=== PATIENT | female | born 1960 | race Caucasian/White ===

== ENCOUNTER 2020-03-11 14:31 | Emergency (ER) | payer OTHER ==
[~2020-03-11] VITALS: Ht 162.6 cm; Wt 80.7 kg
[2020-03-11] MEDS ORDERED: TOPROL XL25 M1 (14:42)
== END 2020-03-11 20:18 | disposition home or self-care (01) ==
LOC: ER 14:31
DX: K52.89 Other specified noninfective gastroenteritis and colitis (principal); Z03.818 Encounter for observation for suspected exposure to other biological agents ruled out

== ENCOUNTER 2020-03-20 09:09 | Inpatient (IN) | payer OTHER ==
[~2020-03-20] VITALS: Ht 10.2 cm; Wt 5.0 kg
[~2020-03-20 09:09] MED LIST: TOPROL XL25 M1
== END 2020-04-14 17:25 | disposition home or self-care (01) | DRG 387 ==
LOC: ER 09:09 → SURH 12:50
PROVIDERS: ADMIT Internal Medicine; ATTEND Internal Medicine
PROC: BW21ZZZ Computerized Tomography (CT Scan) of Abdomen and Pelvis (ICD-10-PCS; principal; 2020-03-20)
PROC: 30233N1 Transfusion of Nonautologous Red Blood Cells into Peripheral Vein, Percutaneous Approach (ICD-10-PCS; 2020-03-21)
PROC: 0DBM8ZZ Excision of Descending Colon, Via Natural or Artificial Opening Endoscopic (ICD-10-PCS; 2020-03-25)
PROC: 0DBN8ZZ Excision of Sigmoid Colon, Via Natural or Artificial Opening Endoscopic (ICD-10-PCS; 2020-03-25)
PROC: 0DBP8ZZ Excision of Rectum, Via Natural or Artificial Opening Endoscopic (ICD-10-PCS; 2020-03-25)
PROC: 02HV33Z Insertion of Infusion Device into Superior Vena Cava, Percutaneous Approach (ICD-10-PCS; 2020-04-01)
PROC: BW21Y0Z Computerized Tomography (CT Scan) of Abdomen and Pelvis using Other Contrast, Unenhanced and Enhanced (ICD-10-PCS; 2020-04-07)
DX: K51.018 Ulcerative (chronic) pancolitis with other complication (principal); K52.89 Other specified noninfective gastroenteritis and colitis; Z20.828 Contact with and (suspected) exposure to other viral communicable diseases; E86.0 Dehydration; D50.0 Iron deficiency anemia secondary to blood loss (chronic); A04.5 Campylobacter enteritis; F43.21 Adjustment disorder with depressed mood

== ENCOUNTER 2020-07-21 20:02 | Inpatient (IN) | payer OTHER ==
[~2020-07-21] VITALS: Ht 162.6 cm; Wt 68.9 kg
[2020-08-11] MEDS ORDERED: PREDNISONE10 M2 (14:38)
== END 2020-08-11 20:40 | disposition home or self-care (01) | DRG 391 ==
LOC: ER 20:02 → ICU 07-22 15:41 → SURH 07-22 15:41 → ICU 08-01 15:51 → SURH 08-06 20:22
PROVIDERS: ADMIT Internal Medicine; ATTEND Internal Medicine
PROC: BW2110Z Computerized Tomography (CT Scan) of Abdomen and Pelvis using Low Osmolar Contrast, Unenhanced and Enhanced (ICD-10-PCS; 2020-07-21)
PROC: B54DZZZ Ultrasonography of Bilateral Lower Extremity Veins (ICD-10-PCS; 2020-07-21)
PROC: 4A12X4Z Monitoring of Cardiac Electrical Activity, External Approach (ICD-10-PCS; 2020-07-23)
PROC: 30233N1 Transfusion of Nonautologous Red Blood Cells into Peripheral Vein, Percutaneous Approach (ICD-10-PCS; 2020-07-24)
PROC: 3E0F7SF Introduction of Other Gas into Respiratory Tract, Via Natural or Artificial Opening (ICD-10-PCS; 2020-07-24)
PROC: 0DBP8ZX Excision of Rectum, Via Natural or Artificial Opening Endoscopic, Diagnostic (ICD-10-PCS; principal; 2020-07-25)
PROC: 0DBN8ZX Excision of Sigmoid Colon, Via Natural or Artificial Opening Endoscopic, Diagnostic (ICD-10-PCS; 2020-07-25)
PROC: B30 Imaging, Upper Arteries, Plain Radiography (ICD-10-PCS; 2020-07-25)
PROC: B30 Imaging, Upper Arteries, Plain Radiography (ICD-10-PCS; 2020-07-25)
PROC: B24BYZZ Ultrasonography of Heart with Aorta using Other Contrast (ICD-10-PCS; 2020-07-26)
PROC: 02H633Z Insertion of Infusion Device into Right Atrium, Percutaneous Approach (ICD-10-PCS; 2020-07-27)
PROC: BW2110Z Computerized Tomography (CT Scan) of Abdomen and Pelvis using Low Osmolar Contrast, Unenhanced and Enhanced (ICD-10-PCS; 2020-07-31)
PROC: 06H03DZ Insertion of Intraluminal Device into Inferior Vena Cava, Percutaneous Approach (ICD-10-PCS; 2020-08-03)
DX: K52.9 Noninfective gastroenteritis and colitis, unspecified (principal); I26.94 Multiple subsegmental thrombotic pulmonary emboli without acute cor pulmonale; K92.1 Melena; I82.402 Acute embolism and thrombosis of unspecified deep veins of left lower extremity; J98.11 Atelectasis; K51.00 Ulcerative (chronic) pancolitis without complications; D64.9 Anemia, unspecified; A04.5 Campylobacter enteritis; D47.3 Essential (hemorrhagic) thrombocythemia; E87.6 Hypokalemia; E86.0 Dehydration; F43.21 Adjustment disorder with depressed mood; Z20.822 Contact with and (suspected) exposure to COVID-19

== ENCOUNTER 2020-08-18 21:16 | Inpatient (IN) | payer OTHER ==
[~2020-08-18] VITALS: Ht 162.6 cm; Wt 65.8 kg
[~2020-08-18 21:16] MED LIST changes: +PREDNISONE10 M2
--- NOTE | 2020-08-18 21:21 | NUR ---
SE RECIBE PACIENTE ALERTA, ORIENTADA EN TIEMPO , LUGAR Y PERSONA REFIERE VENIR POR SANGRADO RECTAL DESDE EL VIERNES SE ESTIMAN S/V TEMPERATURA 101.[address]RIQUI BLAND. SE UBICA EN AREA DE OBSERVACION.
--- NOTE | 2020-08-19 00:27 | NUR ---
PTE EVALUADA POR LA DRA MARTINEZ QUIEN ORDENA EL [place]. SE ORIENTA SOBRE EL MISMO, LO CUAL REFIERE ENTENDER. SE REALIZAN PRUEBAS DE LABORATORIO Y SE ADMINISTRAN MEDICAMENTOS JC ORDEN MEDICA Y SIGUIENDO MEDIDAS ASEPTICAS.
--- NOTE | 2020-08-19 01:08 | NUR ---
SE NOTIFICAN ABG'S A MR HORVATH Y CT'S A MR [place].
--- NOTE | 2020-08-19 02:15 | NUR ---
SE CANALIZA PTE EN ANTEBRAZO RT CON ANGIO #18 PATENTE Y SMILEY DE EDEMA O ERITEMA PARA REALIZAR CT, PTE TOLERA PROCEDIMIENTO. SE ENTREGA COMPRESA DE HIELO.
--- NOTE | 2020-08-19 02:35 | NUR ---
SE TRANSFIERE PTE A LA UNIDAD DE CHEST PAIN, JC ORDEN MEDICA, ES CONECTADA A MONITOR CARDIACO Y OXIMETRIA DE PULSO. UBICADA EN CAMA #16. SE COLOCA CANULA NASAL A 2L/MIN, JC ORDEN MEDICA. PTE EN COMPANIA DE FAMILIAR. PENDIENTE A KCL 40 MEQ Y ZOSYN 4.5GM EN ESPERA DE DESPACHO DE SUPERVISION. SE ENTREGA PTE A MR Feliz GUEVARA.
--- NOTE | 2020-08-19 07:27 | NUR ---
SE RECIBE PACIENTE DEL TURNO ANTERIOR. PACIENTE ALERTA Y ORIENTADA EN LAS JLUIS ESFERAS. DESCANSANDO EN CAMA POSICION SEMIFOWLER Y BARANDAS ELEVADAS. PACIENTE CON TERAPIA INTRAVENOSA PATENTE Y SMILEY DE EDEMA. PACIENTE SMILEY DE DOLOR AL MOMENTO. SE MANTIENE A PACIENTE BAJO OBSERVACION POR CAMBIOS.
--- NOTE | 2020-08-19 08:54 | NUR ---
PENDIENTECONSULTA DE PACIENTE CON DR. MILIAN Y DR. DALY. AMBAS CONSULTAS NOTIFICADAS.
--- NOTE | 2020-08-19 11:21 | NUR ---
SE ADMINISTRA MEDICAMENTO ACETHAMINOPHEN A PACIENTE. LA MISMA SE ENCUENTRA FEBRIL CON TEMPERATURA DE (102.0 F). SE ORIENTA A PACIENTE SOBRE MEDICACION. SE LE ENTREGA A PACIENTE ICE BAG LISSA MEDIDA ANTIPIRETICA.
--- NOTE | 2020-08-19 13:38 | NUR ---
SE ADMINISTRA MEDICAMENTO ORDENADO POR MEDICO. SE ORIENTA A PACIENTE SOBRE MEDICAMENTO ADMINISTRADO. PACIENTE REFIERE ENTENDER. PACIENTE SE MANTIENE BAJO OBSERVACION. TEMPERARUTA AL MOMENTO DE (100.1 F).
--- NOTE | 2020-08-19 15:11 | NUR ---
SE RECIBE PTE FEMENIA ALERTA Y ORIENTADA X3,ACOMPANADA DE FAMILIAR,SE MANTIENE CONECTADA A MONITOR CARDIACO LEOLA Y OXIMETRIA CONNTINUA,SE REALIZAN S/V Y SE NOTIFICA A JONATHANVICKI,SE REALIZA CAMBIO DE PANAL,NO SE OBSERVA ZENON EN EVACUACION Y SE NOTIFICA A JONATHANVICKI,SE TONEY LIMPIA Y SECAMSE MANTIENE PTE EN OBSERVACION POR CAMBIOS.
== END 2020-08-28 18:20 | disposition home or self-care (01) | DRG 371 ==
LOC: ER 21:16 → SURH 08-19 15:46
PROVIDERS: ADMIT Internal Medicine; ATTEND Internal Medicine
PROC: 30243N1 Transfusion of Nonautologous Red Blood Cells into Central Vein, Percutaneous Approach (ICD-10-PCS; 2020-08-19)
PROC: 4A12X4Z Monitoring of Cardiac Electrical Activity, External Approach (ICD-10-PCS; 2020-08-19)
PROC: 3E0F7SF Introduction of Other Gas into Respiratory Tract, Via Natural or Artificial Opening (ICD-10-PCS; 2020-08-19)
PROC: 02HV33Z Insertion of Infusion Device into Superior Vena Cava, Percutaneous Approach (ICD-10-PCS; principal; 2020-08-20)
DX: A04.72 Enterocolitis due to Clostridium difficile, not specified as recurrent (principal); J18.9 Pneumonia, unspecified organism; K51.011 Ulcerative (chronic) pancolitis with rectal bleeding; I27.82 Chronic pulmonary embolism; D64.9 Anemia, unspecified; R53.81 Other malaise; R00.0 Tachycardia, unspecified; I10 Essential (primary) hypertension; D47.3 Essential (hemorrhagic) thrombocythemia; E86.0 Dehydration; J98.4 Other disorders of lung; F43.21 Adjustment disorder with depressed mood; Z79.01 Long term (current) use of anticoagulants

== ENCOUNTER 2020-09-29 12:01 | Outpatient (CLI) | payer OTHER | END 2020-09-29 12:09 | disposition home or self-care (01) | LOC: RAD 12:01 | PROVIDERS: ATTEND Internal Medicine Pulmonary Disease | DX: J98.11 Atelectasis (principal); I26.99 Other pulmonary embolism without acute cor pulmonale ==

== ENCOUNTER → 2020-12-29 14:37 | Outpatient (CLI) | payer OTHER | END | disposition home or self-care (01) | LOC: RAD 14:37 | PROVIDERS: ATTEND Internal Medicine Pulmonary Disease | DX: I26.99 Other pulmonary embolism without acute cor pulmonale (principal); J98.11 Atelectasis ==

== ENCOUNTER 2020-12-31 08:00 | Outpatient (CLI) | payer OTHER | END 2020-12-31 08:30 | disposition home or self-care (01) | LOC: PPH VACUNA 08:00 | DX: Z23 Encounter for immunization (principal) ==

== ENCOUNTER 2021-02-03 07:45 | Outpatient (CLI) | payer OTHER | END 2021-02-03 08:05 | disposition home or self-care (01) | LOC: TOM 07:45 | PROVIDERS: ATTEND Internal Medicine Pulmonary Disease | DX: R07.89 Other chest pain (principal); I26.99 Other pulmonary embolism without acute cor pulmonale; J98.11 Atelectasis ==

== ENCOUNTER 2021-10-12 08:10 | Outpatient (CLI) | payer OTHER | END 2021-10-12 08:16 | disposition home or self-care (01) | LOC: TOM 08:10 | PROVIDERS: ATTEND Internal Medicine Pulmonary Disease | DX: J98.11 Atelectasis (principal); I26.99 Other pulmonary embolism without acute cor pulmonale ==

== ENCOUNTER 2023-02-22 10:56 | Inpatient (IN) | payer OTHER ==
[~2023-02-22] VITALS: Ht 162.6 cm; Wt 72.1 kg
[2023-02-22 12:18] LABS: HEMATOCRIT 28.9 % (36.0-45.00); HEMOGLOBIN 9.5 g/dL (12.0-15.00); MEAN CELL VOLUME 77.1 fL (80.00-100.00); MEAN CORPUSCULAR HEMOGLOBIN 25.3 pg (27.00-32.0); MEAN CORPUSCULAR HGB CONC 32.8 g/dl (32.0-36.0); PLATELET COUNT 366 K/uL (150-450); RED BLOOD COUNT 3.75 M/uL (4.00-6.00); RED CELL DISTRIBUTION WIDTH 20.4 % (11.5-14.5)
[2023-02-22 12:45] LABS: ALBUMIN 1.3 gm/dL (3.4-5.0); BILIRUBIN TOTAL 0.42 mg/dL (0.3-1.2); CALCIUM 7.2 mg/dL (8.5-10.1); CREATININE SERUM 0.7 mg/dL (0.55-1.02); GFR 85.35; GLOBULINA 3.4 G/DL (2.4-3.5); POTASSIUM 3.1 mEq/L (3.5-5.1); TOTAL PROTEIN 4.7 gm/dL (6.4-8.2)
[2023-02-22 12:51] LABS: C-REACTIVE PROTEIN 3.58 MG/DL (0.00-0.29)
[2023-02-22 20:50] LABS: INR 1.51; PARTIAL THROMBOPLASTIN TIME 28.8 SECONDS (22.0-34.0)
[2023-02-22 20:52] LABS: PROTHROMBIN TIME 15.4 SECONDS (9.0-11.5)
[2023-02-22 21:29] LABS: PH,URINE 6.5 (5.0-8.0); URINE APPEARANCE Cloudy; URINE BILIRRUBIN Negative (NEGATIVE); URINE BLOOD Negative; URINE COLOR Dark Yellow; URINE GLUCOSE Negative (NEGATIVE); URINE LEUKOCYTE Trace; URINE NITRATE Negative; URINE PROTEIN Trace (NEGATIVE)
[2023-02-22 21:30] LABS: URINE EPITHELIAL CELLS 16.8 uL (0.0-38.8); URINE WBC 9.1 uL (0.0-23.2)
[2023-02-22 21:35] LABS: URINE RBC 0.4 uL (0.0-20.8)
[2023-02-23 07:48] LABS: ob POSITIVE (NEGATIVE)
[2023-02-23 21:15] LABS: CALCIUM 6.6 mg/dL (8.5-10.1); CHOL HDL RATIO 5.8 (0-5.0); CREATININE SERUM 0.49 mg/dL (0.55-1.02); GFR 128.82
[2023-02-23 21:25] LABS: POTASSIUM 2.66 mEq/L (3.5-5.1)
[2023-02-25 07:34] LABS: ALBUMIN 1.2 gm/dL (3.4-5.0); BILIRUBIN TOTAL 0.29 mg/dL (0.3-1.2); CALCIUM 7.2 mg/dL (8.5-10.1); CREATININE SERUM 0.44 mg/dL (0.55-1.02); GFR 145.86; GLOBULINA 2.5 G/DL (2.4-3.5); POTASSIUM 3.53 mEq/L (3.5-5.1); TOTAL PROTEIN 3.7 gm/dL (6.4-8.2)
[2023-02-25 07:47] LABS: MEAN CORPUSCULAR HGB CONC 32.8 g/dl (32.0-36.0); PLATELET COUNT 235 K/uL (150-450); RED BLOOD COUNT 2.85 M/uL (4.00-6.00); RED CELL DISTRIBUTION WIDTH 20.6 % (11.5-14.5)
[2023-02-25 08:02] LABS: MEAN CORPUSCULAR HEMOGLOBIN 25.6 pg (27.00-32.0)
[2023-02-25 08:03] LABS: HEMATOCRIT 22.2 % (36.0-45.00)
[2023-02-25 08:11] LABS: HEMOGLOBIN 7.3 g/dL (12.0-15.00)
[2023-02-26 05:06] LABS: hav igm Negative (Negative); hcv Non Reactive (Non Reactive); hep b c Negative (Negative)
[2023-02-26 13:56] LABS: HEMATOCRIT 33.2 % (36.0-45.00); HEMOGLOBIN 10.8 g/dL (12.0-15.00); MEAN CELL VOLUME 80.2 fL (80.00-100.00); MEAN CORPUSCULAR HGB CONC 32.5 g/dl (32.0-36.0); PLATELET COUNT 250 K/uL (150-450); RED BLOOD COUNT 4.13 M/uL (4.00-6.00); RED CELL DISTRIBUTION WIDTH 19.1 % (11.5-14.5)
[2023-02-28 06:24] LABS: INR 1.26; PARTIAL THROMBOPLASTIN TIME 24.7 SECONDS (22.0-34.0)
[2023-02-28 06:56] LABS: HEMATOCRIT 26.5 % (36.0-45.00); HEMOGLOBIN 8.9 g/dL (12.0-15.00); MEAN CELL VOLUME 81.2 fL (80.00-100.00); MEAN CORPUSCULAR HEMOGLOBIN 27.2 pg (27.00-32.0); MEAN CORPUSCULAR HGB CONC 33.6 g/dl (32.0-36.0); PLATELET COUNT 244 K/uL (150-450); RED BLOOD COUNT 3.27 M/uL (4.00-6.00); RED CELL DISTRIBUTION WIDTH 19.5 % (11.5-14.5)
[2023-02-28 07:35] LABS: ALBUMIN 1.3 gm/dL (3.4-5.0); BILIRUBIN TOTAL 0.29 mg/dL (0.3-1.2); BILIRUBIN,CONJUGATED 0.15 mg/dL (0.0-0.2); BILIRUBIN,UNCONJUGATED 0.14 mg/dL (0.0-0.6); CALCIUM 7.4 mg/dL (8.5-10.1); CHOL HDL RATIO 6.6 (0-5.0); CREATININE SERUM 0.42 mg/dL (0.55-1.02); GFR 153.9; GLOBULINA 2.8 G/DL (2.4-3.5); MAGNESIUM 1.6 mg/dL (1.8-2.4); POTASSIUM 3.68 mEq/L (3.5-5.1); TOTAL PROTEIN 4.1 gm/dL (6.4-8.2)
[2023-02-28 09:00] LABS: UREA CLEARANCE 29.3 ML/MIN
== END 2023-02-28 17:38 | disposition home or self-care (01) | DRG 386 ==
LOC: ER 10:56 → MEDJ 20:51 → SURG 20:51
PROVIDERS: Emergency Medicine; General Practice; ADMIT Specialist; ATTEND Specialist
PROC: BW21ZZZ Computerized Tomography (CT Scan) of Abdomen and Pelvis (ICD-10-PCS; 2023-02-22)
PROC: 02HV33Z Insertion of Infusion Device into Superior Vena Cava, Percutaneous Approach (ICD-10-PCS; 2023-02-23)
PROC: 3E0436Z Introduction of Nutritional Substance into Central Vein, Percutaneous Approach (ICD-10-PCS; 2023-02-23)
PROC: 30233N1 Transfusion of Nonautologous Red Blood Cells into Peripheral Vein, Percutaneous Approach (ICD-10-PCS; principal; 2023-02-25)
DX: K51.90 Ulcerative colitis, unspecified, without complications (principal); D62 Acute posthemorrhagic anemia; K92.1 Melena; E88.09 Other disorders of plasma-protein metabolism, not elsewhere classified

== ENCOUNTER 2024-07-13 10:20 | Outpatient (CLI) | payer OTHER | END 2024-07-13 10:22 | disposition home or self-care (01) | LOC: TOM 10:20 | PROVIDERS: ATTEND Internal Medicine Gastroenterology | DX: K57.11 Diverticulosis of small intestine without perforation or abscess with bleeding (principal) ==